=== PATIENT | female | born 1990 | race Caucasian/White ===

== ENCOUNTER 2016-12-02 12:37 | Emergency (ER) | payer OTHER ==
[~2016-12-02] VITALS: Ht 180.3 cm; Wt 100.0 kg
[2016-12-02 12:58] VITALS: BP 132/68; PULSE 74; RESP 16; TEMP 98.3; O2SAT 98
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
[2016-12-02] MEDS ORDERED: IBUPROFEN 600 MG TAB PO ONE (13:15)
[2016-12-02] MEDS ORDERED: METHOCARBAMOL 500 MG TAB PO ONE (13:15)
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
[2016-12-02] MEDS ORDERED: ROBA750T PO (14:26)
[2016-12-02] MEDS ORDERED: IBUP-232 PO (14:26)
== END 2016-12-02 14:45 | disposition home or self-care (01) ==
LOC: NEPB 12:37
DX: M54.5 Low back pain (principal); V43.52XA Car driver injured in collision with other type car in traffic accident, initial encounter; Y93.9 Activity, unspecified; Y92.9 Unspecified place or not applicable
CPT/HCPCS: 72072; 72100; 99284